=== PATIENT | male | born 1945 | race Caucasian/White ===

== ENCOUNTER 2022-07-17 14:16 | Outpatient (RCR) | payer MEDICARE, OTHER, SELFPAY | END 2022-07-22 13:43 | disposition home or self-care (01) | LOC: PT 14:16 | PROVIDERS: PCP Family Medicine; Visit Provider Family Medicine | DX: M54.12 Radiculopathy, cervical region (principal) | CPT/HCPCS: 97110; 97140; 97163 ==

== ENCOUNTER 2022-07-19 12:59 | Outpatient (OUT) | payer MEDICARE, OTHER, SELFPAY ==
--- NOTE | 2022-07-19 12:39 | MR_ITS ---
[address] [address] Patient Name: SHAHID PALAFOX MRN: [id number] date: 1945 Sex: M Assigned Patient Location: [facility] Current Patient Location: [facility] Accession/Order Number: [id number] Exam Date: 07/19/2022 13:10 Report Date: 07/20/2022 07:10 At the request of: TYESHA GARCIA Procedure: MR cervical spine wo con EXAMINATION: MR cervical spine wo con HISTORY: Cervical radicular pain M54.12 ; cervical pain, bilateral arm tingling and numbness COMPARISON: XR C-spine 07/12/2022 TECHNIQUE: A variety of imaging planes and parameters were utilized for visualization of suspected pathology. FINDINGS: CRANIOCERVICAL AREA: Normal foramen magnum with no Chiari malformation. PARASPINAL AREA: Normal with no visible mass. BONES: Mild grade 1 retrolisthesis of C3 on 4. CORD: Compressed posterior to C3-4; no abnormal signal within the cord.. CERVICAL DISC LEVELS: C2-C3: Early degenerative disc disease is present without focal protrusion or neural impingement. C3-C4: Marked central canal bilateral foramen narrowing. Slight retrolisthesis of C3 on 4, posterior disc bulging, and uncovertebral joint spurring. Mild degenerative facet arthropathy bilaterally. No significant disc height reduction. C4-C5: Marked central canal and bilateral foramen narrowing, right greater than left. Mild diffuse disc bulging and large broad-based protrusion into the right foramen along with uncovertebral joint spurring. Mild degenerative facet arthropathy. No significant disc height reduction. C5-C6: Moderate marked central canal and bilateral foramen narrowing. Mild diffuse disc bulging, uncovertebral joint spurring, and mild degenerative facet arthropathy. No significant disc height reduction. C6-C7: Mild central canal and moderate bilateral foramen narrowing. Mild diffuse disc bulging, mild disc height reduction, and bilateral uncovertebral joint spurring. C7-T1:. Early degenerative disc disease is present without focal protrusion or neural impingement. IMPRESSION: 1. Marked central canal and bilateral foramen narrowing at C3-4 and C4-5; greatest at C3-4. 2. Multilevel moderate to marked central canal and foramen narrowing. 3. No appreciable acute abnormality. Electronically authenticated by: NORY LEGGETT Date: 07/20/2022 07:10
--- NOTE | 2022-07-19 12:50 | XR_ITS ---
The [address] [address] Patient Name: SHAHID PALAFOX MRN: [id number] date: 1945 Sex: M Assigned Patient Location: RAD Current Patient Location: [facility] Accession/Order Number: [id number] Exam Date: 07/19/2022 12:52 Report Date: 07/19/2022 13:08 At the request of: TYESHA GARCIA Procedure: XR foreign body eye EXAMINATION: XR foreign body eye HISTORY: PRE MRI SCREENING COMPARISON: No relevant comparison available. FINDINGS: ORBITS: Negative for a metallic foreign body. OTHER: Negative. IMPRESSION: 1. No metallic foreign body within the orbits. Electronically authenticated by: NORY LEGGETT Date: 07/19/2022 13:08
== END 2022-07-19 13:00 ==
LOC: RAD 12:59
PROVIDERS: PCP Family Medicine; Visit Provider Family Medicine
DX: M54.12 Radiculopathy, cervical region (principal); R20.0 Anesthesia of skin; R20.2 Paresthesia of skin
CPT/HCPCS: 70030; 72141

== ENCOUNTER 2022-08-24 12:55 | Outpatient (OUT) | payer MEDICARE, OTHER, SELFPAY ==
[2022-08-24 13:41] LABS: Erythrocyte Sedimentation Rate 53 mm/hr (<=20)
[2022-08-24 14:34] LABS: C Reactive Protein 3.3 mg/dL (<=1.0)
== END 2022-08-24 12:56 | disposition home or self-care (01) ==
PROVIDERS: PCP Family Medicine; Visit Provider Family Medicine
DX: R20.2 Paresthesia of skin (principal)
CPT/HCPCS: 36415; 85652; 86140

== ENCOUNTER 2022-09-01 10:12 | Outpatient (OUT) | payer MEDICARE, OTHER, SELFPAY ==
[2022-09-01 10:44] LABS: Erythrocyte Sedimentation Rate 33 mm/hr (<=20)
[2022-09-01 11:04] LABS: C Reactive Protein 0.9 mg/dL (<=1.0)
== END 2022-09-01 10:13 | disposition home or self-care (01) ==
LOC: LAB 10:13
PROVIDERS: PCP Family Medicine; Visit Provider Psychiatry & Neurology Neurology
DX: R20.2 Paresthesia of skin (principal)
CPT/HCPCS: 36415; 85652; 86140

== ENCOUNTER 2024-11-03 09:18 | Outpatient (OUT) | payer MEDICARE, OTHER, SELFPAY ==
--- OUTSIDE RECORDS SUMMARY | 2024-10-29 10:10 | XMS_ITS | Encounter Summary ---
Author Organization [facility] Address [address] [place] [address] Phone Care Team Providers Care Short Piece Handler Name Role Phone Robby Machado MD Primary Care Provider [phone] Reason for Referral * CV Imaging (Routine) - Authorized Specialty Diagnoses / Procedures Referred By Alanna gan Referred To Contact Cardiology Diagnoses ASHD (arteriosclerotic heart disease) Systolic murmur Former cigarette smoker Procedures Transthoracic Echo Complete OR ECHO TTHRC R-T 2D W/WOM-MODE COMPL SPEC&COLR D Aleksandr Lee DO 703 [facility] 2, [address] [address] Phone: tel: fax: Referral ID Status Reason Start Date Expiration Date Visits Requested Visits Authorized [id number] Authorized Perform Procedure 10/29/2024 10/29/2025 1 1 * Consultation (Routine) - Authorized Specialty Diagnoses / Procedures Referred By Alanna gan Referred To Contact Cardiology Diagnoses ASHD (arteriosclerotic heart disease) Procedures Follow Up In Cardiology Aleksanrd Lee DO 703 [facility] [address], [address] [address] Phone: tel: fax: Yady Gee APRN-ILAN [address]03 [facility] [address], [address] [address] Phone: tel: fax: Referral ID Status Reason Start Date Expiration Date V isits Requested Visits Authorized [id number] Authorized 10/29/2024 10/29/2025 1 1 Reason for Visit * Reason Comments Follow-up 1 year ASHD (arterio sclerotic heart disease) * Consultation (Routine) - Authorized Specialty Diagnoses / Procedures Referred By Contviktoriya t Referred To Contact Cardiology Diagnoses ASHD (arteriosclerotic heart disease) Procedures Follow Up In Cardiology Aleksandr Lee DO [address] [place] [address] [address] [address] Phone: tel: fax: Aleksandr Lee, [address] [place] [address] [address], [address] [address] Phone: tel: fax: Referral ID Status Reason Start Date Expiration Date V isits Requested Visits Authorized [id number] Authorized 10/25/2023 10/24/2024 1 1 Encounter Details Date Type Department Care Team (Latest Contact Info) Description 10/29/2024 10:10 AM EDT Office Visit [facility] [address] [address] Aleksandr Lee DO [address] [place] [address] [address], [address] [address] ASHD (arteriosclerotic heart disease); Essential hypertension; Systolic murmur; Hyperlipidemia, unspecified hyperlipidemia type; Statin intolerance; Former cigarette smoker; BMI 34.0-34.9,adult; Screening for cholesterol level Discharge Disposition: Home Social History Tobacco Use Types Packs/Day Years Used Date Smoking Tobacco: Former Cigarettes Tobacco Cessation:Counseling Given: Not Answered Alcohol Use Standard Drinks/Week Comments Yes 0 (1 standard drink = 0.6 oz pur e alcohol) occasional Sex and Gender Information Value Date Recorded Sex Assigned at Not on file Legal Sex Male 9:57 AM EDT Gender Identity Not on file Sexual Orientation Not on file documented as of this encounter Last Filed Vital Signs Vital Sign Reading Time Taken Comments Blood Pressure 140/60 10/29/2024 10:05 AM EDT Pulse 64 10/29/2024 10:05 AM EDT Temperature - - Respiratory Rate - - Oxygen Saturation - - Inhaled Oxygen Concentration - - Weight 97.1 kg (214 lb) 10/29/2024 10:05 AM EDT Height 167.6 cm (5' 6 ) 10/29/2024 10:05 AM EDT Body Mass Index 34.54 10/29/2024 10:05 AM EDT documented in this encounter Patient Instructions * Patient Instructions* Joseline Enrique RN - 10/29/2024 10:10 AM EDT Please bring all medicines, vitamins, and herbal supplements with you when you come to the office. Prescriptions will not be filled unless you are compliant with your follow up appointments or have a follow up appointment scheduled as per instruction of your physician. Refills should be requested at the time of your visit. BMI was above normal measurement. Current weight: 97.1 kg (214 lb) Weight change since last visit (-) denotes wt loss -3 lbs Weight loss needed to achieve BMI 25: 59.4 Lbs Weight loss needed to achieve BMI 30: 28.5 Lbs Provided instructions on dietary changes Provided instructions on exercise. documented in this encounter Progress Notes * Aleksandr Lee, - 10/29/2024 10:10 AM EDT Chief Complaint Patient presents with Follow-up 1 year ASHD (arteriosclerotic heart disease) Subjective Ronnie Newman is a 79 y.o. male Healthy 79-year-old lance returns for routine cardiovascular annual follow-up and is doing extremely well. He denies any cardiovascular events, complaints or nitrate usage or hospitalizations. Details of his 2022 heart catheterization are reviewed. He is intolerant to statins, supposedly had bloodwork drawn last year but we do not have any of his blood work for review. He does have a 2/6 systolic murmur on examination, echocardiogram from last year revealed normal left ventricular function and a very mild aortic valve stenosis. 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 His true functional class is I. He has known coronary artery disease discovered on heart catheterization 2022 with 100% occlusion of the RCA, WINDLASSER of the diagonal branch (very small) and otherwise widely patent LAD and circumflex systems, with preserved left ventricular function, prior PCI's at [facility] many years ago Recommendations: Obtain lipid panel, obtain repeat echocardiogram to assess aortic valve physiology, continue current therapies, follow-up in 1 year Review of Systems All other systems reviewed and are negative. Vitals: 10/29/24 1005 BP: 140/60 BP Location: Left arm Patient Position: Sitting Pulse: 64 Weight: 97.1 kg (214 lb) Height: 1.676 m (5' 6 ) Objective Physical Exam Constitutional: Appearance: Normal appearance. HENT: Nose: Nose normal. Neck: Vascular: No carotid bruit. Cardiovascular: Rate and Rhythm: Normal rate. Pulses: Normal pulses. Heart sounds: Murmur heard. Systolic murmur is present with a grade of 2/6. Pulmonary: Effort: Pulmonary effort is normal. Abdominal: General: Bowel sounds are normal. Palpations: Abdomen is soft. Musculoskeletal: General: Normal range of motion. Cervical back: Normal range of motion. Right lower leg: No edema. Left lower leg: No edema. Skin: General: Skin is warm and dry. Neurological: General: No focal deficit present. Mental Status: He is alert. Psychiatric: Mood and Affect: Mood normal. Behavior: Behavior normal. Thought Content: Thought content normal. Judgment: Judgment normal. Allergies Patient has no known allergies. Current Medications Current Outpatient Medications Medication Instructions aspirin 81 mg, Every other day co-enzyme Q-10 30 mg, Daily metoprolol succinate XL (TOPROL-XL) 25 mg, oral, Daily multivitamin tablet 1 tablet, Daily valsartan (DIOVAN) 80 mg, oral, Daily Assessment/Plan 1. ASHD (arteriosclerotic heart disease) Follow Up In Cardiology 2. Essential hypertension 3. Systolic murmur 4. Hyperlipidemia, unspecified hyperlipidemia type 5. Statin intolerance 6. Former cigarette smoker 7. BMI 34.0-34.9,adult 8. Screening for cholesterol level Scribe Attestation By signing my name below, Joseline Brar RN , Scribe attest that this documentation has been prepared under the direction and in the presence of Wicho Lee DO. Provider Attestation - Scribe documentation All medical record entries made by the Scribe were at my direction and personally dictated by me. Kelly reviewed the chart and agree that the record accurately reflects my personal performance of the history, physical exam, discussion and plan. documented in this encounter Plan of Treatment Upcoming Encounters Date Type Department Care Team (Late st Contact Info) Description 11/14/2024 1:15 PM EDT Appointment [facility] [address] [facility] [address] [place] [address] 11/09/2025 2:00 PM EDT Office Visit [facility] [address] [facility] [address] [place] [address] Yady Gee, POURER BUGGY LADLE-DISPATCHER ELECTRIC POWER [address] [facility] [address] [place] [address] Scheduled Orders Name Type Priority Associated Diagnoses Order Schedule Transthoracic Echo Complete Echocardiography Routine ASHD (arteriosclerotic heart disease) Systolic murmur Former cigarette smoker Expected: 10/29/2024 (Approximate), Expires: 10/29/2026 Alanine Aminotransferase Lab Routine Screening for cholesterol level Expected: 10/29/2024, Expires: 10/29/2025 Aspartate Aminotransferase Lab Routine Screening for cholesterol level Expected: 10/29/2024, Expires: 10/29/2025 Lipid Panel Lab Routine Screening for cholesterol level Expected: 10/29/2024, Expires: 10/29/2025 documented as of this encounter Visit Diagnoses Diagnosis ASHD (arteriosclerotic heart disease) Coronary atherosclerosis of unspecified type of vessel, hamilton or graft Essential hypertension Unspecified essential hypertension Systolic murmur Undiagnosed cardiac murmurs Hyperlipidemia, unspecified hyperlipidemia type Statin intolerance Former cigarette smoker Personal history of tobacco use, presenting hazards to health BMI 34.0-34.9,adult Screening for cholesterol level documented in this encounter Additional Health Concerns Assessment Noted Time A fall risk assessment has been complete d for the patient 10/29/2024 10:05 AM EDT documented as of this encounter Care Teams Short Piece Handler Relationship Specialty Start Date End Date Robby Machado MD [address] [facility] [place] [address] PCP - General 09/27/22 documented as of this encounter
--- OUTSIDE RECORDS SUMMARY | 2024-11-03 09:22 | XMS_ITS | Clinical Summary ---
Author Organization [facility] Address [address] [place] [address] Care Team Providers Care Technology Applications Teacher Name Role Phone Robby Machado MD Primary Care Provider [phone] Allergies No known active allergies Medications metoprolol succinate XL (Toprol-XL) 25 MG 24 hr tablet 08/09/2022 Act shey Multiple Vitamin (Multi-Vitamin) tablet Take 1 tablet by mouth in the morning. Active Active Problems No known active problems Family History Medical History Relation Name Comments Heart disease Father Heart disease Mother Relation Name Status Comments Father Mother Social History Tobacco Use Types Packs/Day Years Used Date Smoking Tobacco: Former Cigarettes Tobacco Cessation:Counseling Given: Not Answered Alcohol Use Standard Drinks/Week Comments Yes 0 (1 standard drink = 0.6 oz pur e alcohol) caffiene 1 c daily coffee AUDIT-C Answer Date Recorded Q1: How often do you have a drink containing alc ohol? 2-3 times a week 08/10/2022 Q2: How many drinks containi ng alcohol do you have on a typical day when you are drinking? 1 or 2 08/10/2022 Q3: How often do you have si x or more drinks on one occasion? Weekly 08/10/2022 Sex and Gender Information Value Date Recorded Sex Assigned at Not on file Legal Sex Male 8:43 AM EDT Gender Identity Not on file Sexual Orientation Not on file Last Filed Vital Signs Vital Sign Reading Time Taken Comments Blood Pressure - - Pulse - - Temperature 36.9 C (98.5 F) 08/10/2022 2:24 PM EDT Respiratory Rate - - Oxygen Saturation - - Inhaled Oxygen Concentration - - Weight 96.6 kg (213 lb) 08/10/2022 2:24 PM EDT Height 170.2 cm (5' 7 ) 08/10/2022 2:24 PM EDT Body Mass Index 33.36 08/10/2022 2:24 PM EDT Plan of Treatment Not on file Insurance [employer]ARE [employer] Care Teams Technology Applications Teacher Relationship Specialty Start Date End Date Robby Machado MD PCP - General Family Medicine 08/10/22
--- OUTSIDE RECORDS SUMMARY | 2024-11-03 09:22 | XMS_ITS | Encounter Summary ---
Author Organization [facility] Address [address] [place] [address] Phone Care Team Providers Care Fruit Picker Name Role Phone Robby Machado MD Primary Care Provider [phone] Encounter Details Date Type Department Care Team (Late st Contact Info) Description 09/19/2022 Orders Only [facility] [address] [place] [address] Conversion, Onbase Social History Tobacco Use Types Packs/Day Years Used Date Smoking Tobacco: Never Assessed Sex and Gender Information Value Date Recorded Sex Assigned at Not on file Legal Sex Male 9:57 AM EDT Gender Identity Not on file Sexual Orientation Not on file documented as of this encounter Plan of Treatment Upcoming Encounters Date Type Department Care Team (Late st Contact Info) Description 11/14/2024 1:15 PM EDT Appointment [place] [id number] [facility] [address] [place] [address] 11/09/2025 2:00 PM EDT Office Visit [place] [id number] [facility] [address] [place] [address] Yady Gee, BINDERY CHIEF-CITY MAGISTRATE [address] [facility] [address] [place] [address] Scheduled Orders Name Type Priority Associated Diagnoses Orde r Schedule OUTSIDE LAB SCAN Lab Ordered: 09/19/2022 documented as of this encounter Visit Diagnoses Not on filedocumented in this encounter Care Teams Fruit Picker Relationship Specialty Start Date End Date Robby Machado MD [address] [facility] [place] [address] PCP - General 09/27/22 documented as of this encounter
--- OUTSIDE RECORDS SUMMARY | 2024-11-03 09:22 | XMS_ITS | Clinical Summary ---
Author Organization [facility] Address [address] [place] [address] Care Team Providers Care Roaster Operator Name Role Phone Robby Machado MD Primary Care Provider [phone] Allergies No known active allergies Medications meloxicam (MOBIC) 7.5 MG tabletIndications :Lumbar stenosis with neurogenic claudication Take 1 (one) tablet (7.5 mg total) by mouth daily . 21 tablet 2 Active multivitamin per tablet Take 1 (one) tablet by mouth daily . Active aspirin 81 MG EC tablet Take 1 (one) tablet (81 mg total) by mouth daily . Active co-enzyme Q-10 30 mg capsule Take 1 (one) capsule (30 mg total) by mouth 3 (three) times a day . Active Active Problems No known active problems Social History Tobacco Use Types Packs/Day Years Used Date Smoking Tobacco: Never Assessed Sex and Gender Information Value Date Recorded Sex Assigned at Not on file Legal Sex Male 8:31 AM EDT Gender Identity Not on file Sexual Orientation Not on file Plan of Treatment Health Maintenance Due Date Last Done Comments Tetanus: Every 10yrs 1945 Medicare Wellness Visit 09/23/1950 Depression Screening/Follow-Up (PHQ-2/9) 1959 Hepatitis C Screening 09/23/1965 Pneumococcal Vaccine: Age 50 + (1 of 1 - PCV) 09/23/1997 Zoster Vaccines (1 of 2) 09/23/1997 Falls Risk Assessment 09/23/2012 Respiratory Syncytial Virus Immunization: Risk, 60-74 Risk, or 75+ (1 - 1-dose 75+ series) 09/23/2022 COVID-19 Vaccine ( season) 10/13/202409/2020, 06/29/2020 Influenza Vaccine (#1) 2024 Insurance MEDICARE PART A & B [facility] Care Teams Roaster Operator Relationship Specialty Start Date End Date Robby Machado MD [address] [facility] [place] [address] PCP - General Family Medicine 11/02/21
--- OUTSIDE RECORDS SUMMARY | 2024-11-03 09:22 | XMS_ITS | Encounter Summary ---
Author Organization [facility] Address [address] [place] [address] Phone Care Team Providers Care Layout Man Name Role Phone Robby Machado MD Primary Care Provider [phone] Reason for Visit * Reason Comments Med Refill Encounter Details Date Type Department Care Team (Late st Contact Info) Description 10/26/[address] [id number] Aleksandr Lee DO [address] [facility] [address] [place] [address] Essential hypertension Social History Tobacco Use Types Packs/Day Years Used Date Smoking Tobacco: Former Cigarettes Alcohol Use Standard Drinks/Week Comments Yes 0 [...] Info) Description 11/14/2024 1:15 PM EDT Appointment [place] [id number] [place] [address] [place] [address] 11/09/2025 2:00 PM EDT Office Visit [address] [place] [address] Yady Gee, COMMUNITY SUPPORT SPECIALIST-SUBSTANCE ABUSE TECHNICIAN [address] [facility] [address] [place], [place] [id number] documented as of this encounter Visit Diagnoses Diagnosis Essential hypertension Unspecified essential hypertension documented in this encounter Additional Health Concerns Assessment Noted Time A fall risk assessment has been complete d for the patient 10/25/2023 11:15 AM EDT documented as of this encounter Care Teams Layout Man Relationship Specialty Start Date End Date Robby Machado MD [address] [place] [address] PCP - General 09/27/22 documented as of this encounter
--- OUTSIDE RECORDS SUMMARY | 2024-11-03 09:22 | XMS_ITS | Encounter Summary ---
Author Organization [facility] Address [address] [place] [address] Phone Care Team Providers Care Aquatic Habitat Biologist Name Role Phone Robby Machado MD Primary Care Provider [phone] Encounter Details Date Type Department Care Team (Late st Contact Info) Description 10/09/2022 Scanned Document [facility] [address] [place] [address] Conversion, Onbase Social History Tobacco Use Types [...] Info) Description 11/14/2024 1:15 PM EDT Appointment [facility] [address] [facility] [address] [place] [address] 11/09/2025 2:00 PM EDT Office Visit [facility] [address] [facility] [address] [place] [address] Yady Gee, CREATIVE SERVICES PRODUCER-CORPORATE COMMUNICATIONS MANAGER [address] [facility] [address] [place] [address] documented as of this encounter Procedures Procedure Name Priority Date/Time Associated Diagnosis Comments ADULT CATH 10/09/2022 documented in this encounter Results * ADULT CATH (10/09/2022) Narrative 10/09/2022 Ordered by an unspecified provider. us Onbase Conversion CV CARDIAC CATH PROCEDURES Fin al Result documented in this encounter Visit Diagnoses Not on filedocumented in this encounter Care Teams Aquatic Habitat Biologist Relationship Specialty Start Date End Date Robby Machado MD [address] [place] [address] PCP - General 09/27/22 documented as of this encounter
--- OUTSIDE RECORDS SUMMARY | 2024-11-03 09:22 | XMS_ITS | Encounter Summary ---
Author Organization [facility] Address [address] [place] [address] Phone Care Team Providers Care Electrician Front Name Role Phone Robby Machado MD Primary Care Provider [phone] Encounter Details Date Type Department Care Team (Latest Contact Info) Description 10/29/2024 Travel Social History Tobacco Use Types Packs/Day Years [...] Info) Description 11/14/2024 1:15 PM EDT Appointment [place] [address] [facility] [address] [place] [address] 11/09/2025 2:00 PM EDT Office Visit [place] [address] [facility] [address] [place] [address] Yady Gee, DEPUTY SHERIFF COURT SERVICES-MARKET RESEARCH ASSISTANT [address] [place] [address] documented as of this encounter Visit Diagnoses Not on filedocumented in this encounter Additional Health Concerns Assessment Noted Time A fall risk assessment has been complete d for the patient 10/29/2024 10:05 AM EDT documented as of this encounter Care Teams Electrician Front Relationship Specialty Start Date End Date Robby Machado MD [address] [facility] [place] [address] PCP - General 09/27/22 documented as of this encounter
--- OUTSIDE RECORDS SUMMARY | 2024-11-03 09:23 | XMS_ITS | Encounter Summary ---
Author Organization [facility] Address [address] [place] [address] Phone Care Team Providers Care Patient Case Manager Name Role Phone Robby Machado MD Primary Care Provider [phone] Encounter Details Date Type Department Care Team (Late st Contact Info) Description 09/27/2022 Scanned Document [facility] [address] [place] [address] Conversion, Onbase Social History Tobacco Use Types Packs/Day Years Used Date Smoking Tobacco: Never Assessed Sex and Gender Information Value Date Recorded Sex Assigned at Not on file Legal Sex Male 9:57 AM EDT Gender Identity Not on file Sexual Orientation Not on file documented as of this encounter Functional Status * Little interest or pleasure in doing things Answer Date of Assessment Author Not at all 09/27/2022 9:09 AM EDT [employer]vers[employer] Shey mcdonough [employer] Vitals documented as of this encounter Plan of Treatment Upcoming Encounters Date Type Department Care Team (Late st Contact Info) Description 11/14/2024 1:15 PM EDT Appointment [address] [place] [phone] 11/09/2025 2:00 PM EDT Office Visit [address] [place] [phone] Yady Gee, [employer] WORK[employer]POS[employer] TEACHING ARTIST [facility] [place] [address] documented as of this encounter Procedures Procedure Name Priority Date/Time Associated Diagnosis Comments ELECTROCARDIOGRAM RHYTHM STRIP 09/27/2022 documented in this encounter Results * ELECTROCARDIOGRAM RHYTHM STRIP (09/27/2022) Narrative 09/27/2022 Ordered by an unspecified provider. us Onbase Conversion ECG ORDERABLES Final Result documented in this encounter Visit Diagnoses Not on filedocumented in this encounter Care Teams Patient Case Manager Relationship Specialty Start Date End Date Robby Machado MD [address] [place] [address] PCP - General 09/27/22 documented as of this encounter
[2024-11-03 10:07] LABS: Alanine Aminotransferase 13 U/L (16-63); Aspartate Amino Transferase 23 U/L (15-37); Cholesterol 203 mg/dL (<=200); HDL Cholesterol 41 mg/dL (40-60); Triglycerides 126 mg/dL (<=150); VLDL CHOLESTEROL 25.2 mg/dL
== END 2024-11-03 09:19 | disposition home or self-care (01) ==
LOC: LAB 09:20
PROVIDERS: PCP Family Medicine; Visit Provider Internal Medicine Cardiovascular Disease
DX: Z13.220 Encounter for screening for lipoid disorders (principal)
CPT/HCPCS: 36415; 80061; 84450; 84460